=== PATIENT | female | born 1965 | race Caucasian/White ===

== ENCOUNTER 2018-12-19 13:20 | Emergency (ER) | payer SELFPAY ==
[~2018-12-19] VITALS: Ht 160 cm; Wt 70.3 kg
[2018-12-19 13:28] VITALS: BP 130/62
[2018-12-19] MEDS ORDERED: METF500T PO (13:38)
--- NOTE | 2018-12-19 13:39 | NUR ---
PT AMBULATED TO ER BED 11
--- NOTE | 2018-12-19 13:45 | NUR ---
PT BIB SON C/O ABNORMAL EKG AT URGENT CARE, AND VOMITING. PT STATES SHE STARTED VOMITING THIS MORNING WENT TO AN URGENT CARE, EKG WAS PERFORMED AND PT WAS TOLD TO COME TO ED B/C EKG "WAS BAD", PT STATES SHE DOES NOT RECALL WHAT THE EKG SAID AND DOES NOT HAVE COPY. PT STATES 0/10 PAIN AT THIS TIME. -VOMITING 3 TIMES TODAY W/ WHITE FLEM EMESIS. --PT BREATHING EQUAL AND UNLABORED. PT ACTING APPROPRIATLY, SPEAKING IN CLEAR AND COMPLETE SENTENCES. PT IN GOWN, IN BED; PT PLACED ON BEDSIDE [employer]IST. SAFETY PRECAUTIONS IN PLACE. PMH: DIABETES RX: METFORMIN (PT STATES SHE DID NOT TAKE TODAY)
[2018-12-19 14:38] LABS: BASOPHILS % (AUTO) 0.4 % (0.0-2.0); EOSINOPHILS % (AUTO) 0.1 % (0.0-4.0); HEMATOCRIT 38.5 % (36-48); LYMPHOCYTES # (AUTO) 1.2 K/uL (2.5-16.5); LYMPHOCYTES % (AUTO) 12.9 % (20.5-51.1); MEAN CORPUSCULAR HEMOGLOBIN 30 pg (27-31); MEAN CORPUSCULAR HGB CONC 34 g/dL (33-37); MEAN CORPUSCULAR VOLUME 88.5 fL (80-94); MONOCYTES # (AUTO) 0.3 K/uL (0.8-1.0); MONOCYTES % (AUTO) 3.7 % (1.7-9.3); NEUTROPHILS # (AUTO) 7.7 K/uL (1.8-7.7); NEUTROPHILS % (AUTO) 82.9 % (42.2-75.2); PLATELET COUNT (AUTO) 240 K/uL (140-450); RED BLOOD CELL COUNT(AUTO) 4.35 MIL/uL (4.20-5.40); RED CELL DISTRIBUTION WIDTH 13.1 % (11.6-13.7); WHITE BLOOD COUNT (AUTO) 9.3 K/uL (4.8-10.8)
[2018-12-19 14:51] LABS: ANION GAP 14.5 (8-16); CARBON DIOXIDE 26.3 mmol/L (21-32); CREATININE 0.6 mg/dL (0.6-1.3); POTASSIUM 3.8 mmol/L (3.5-5.1)
[2018-12-19 15:02] LABS: ALBUMIN 3.9 g/dL (3.4-5.0); TOTAL BILIRUBIN 0.5 mg/dL (0.0-1.0)
[2018-12-19 17:03] VITALS: BP 130/62
--- NOTE | 2018-12-19 17:04 | NUR ---
Patient discharged with v/s stable. Written and verbal after care instructions given and explained. Patient alert, oriented and verbalized understanding of instructions. Ambulatory with steady gait. All questions addressed prior to discharge. ID band removed. Patient advised to follow up with PMD. Rx of antivert given. Patient educated on indication of medication including possible reaction and side effects. Opportunity to ask questions provided and answered.
== END 2018-12-19 17:04 | disposition home or self-care (01) ==
LOC: MED 13:20
DX: R42 Dizziness and giddiness (principal); R11.0 Nausea; E11.9 Type 2 diabetes mellitus without complications; Z79.84 Long term (current) use of oral hypoglycemic drugs
CPT/HCPCS: 36415; 70450; 80053; 83880; 84484; 85025; 85610; 85730; 93005; 99284